=== PATIENT | female | born 1995 | race African-American/Black ===

== ENCOUNTER 2021-09-26 14:39 | Emergency (ER) | payer OTHER ==
[2021-09-26] MEDS ORDERED: Ondansetron 4 MG/2 ML SDV IVPUSH ONE (15:16)
[2021-09-26] MEDS ORDERED: Sodium Chloride 0.9% 1,000 ML IV ONE (15:16)
[2021-09-26 16:12] LABS: BLOOD UREA NITROGEN,BUN 5 mg/dL (7.0-18.0); CARBON DIOXIDE,CO2 25.4 mmol/L (21.0-32.0); CHLORIDE,CL 99 mmol/L (98-107); GLUCOSE RANDOM 81 mg/dL (74-106); POTASSIUM,K 3.6 mmol/L (3.5-5.1); SODIUM,NA 136 mmol/L (136-145)
[2021-09-26 16:38] LABS: CORONAVIRUS COVID-19 NAA NEGATIVE (NEGATIVE); INFLUENZA A NAA NEGATIVE (NEGATIVE); INFLUENZA B NAA NEGATIVE (NEGATIVE)
== END 2021-09-26 17:03 | disposition home or self-care (01) ==
LOC: MW.ED 14:39
DX: O21.9 Vomiting of pregnancy, unspecified (principal); O99.511 Diseases of the respiratory system complicating pregnancy, first trimester; J01.00 Acute maxillary sinusitis, unspecified; Z3A.11 11 weeks gestation of pregnancy; Z88.5 Allergy status to narcotic agent; Z20.822 Contact with and (suspected) exposure to COVID-19
CPT/HCPCS: 0240U; 36415; 80053; 81003; 85025; 96374; 99284; J2405; J7030

== ENCOUNTER 2022-04-07 09:49 | Inpatient (IN) | payer OTHER ==
[2022-04-07] MEDS: Lactated Ringers 1,000 ML IV SCH ×2 (11:00→12:00)
[2022-04-07] MEDS ORDERED: Citric Acid/Sodium Citrate Solution 30 ML Cup PO ONE (11:10)
[2022-04-07] MEDS ORDERED: Sodium Chloride 0.9% 20 ML SDV IV PRN (11:10)
[2022-04-07] MEDS ORDERED: ceFAZolin 2 GM in Premix Bag 1 BAG IV ONE (11:10)
[2022-04-07] MEDS ORDERED: Sodium Chloride 0.9% 2.5 ML Syringe FLUSH PRN ×2 (11:10→13:43)
[2022-04-07] MEDS ORDERED: Sodium Chloride 0.9% 10 ML Syringe FLUSH PRN ×2 (11:10→13:43)
[2022-04-07] MEDS ORDERED: Oxytocin/0.9 % Sodium Chloride 30 UNIT/500 ML BAG IV SCH (11:15)
[2022-04-07] MEDS ORDERED: Morphine PF 10 MG/10 ML SDV ONE (11:53)
[2022-04-07] MEDS ORDERED: Phenylephrine HCl In 0.9% NaCl 1 MG/10 ML Vial ONE (11:55)
[2022-04-07] MEDS ORDERED: Dexamethasone 4 MG/ML 5 ML MDV ONE (11:55)
[2022-04-07] MEDS ORDERED: Water For Injection, Sterile 40 ML ONE (11:55)
[2022-04-07] MEDS ORDERED: ceFAZolin 1 GM Vial ONE (11:55)
[2022-04-07] MEDS ORDERED: Oxytocin 10 Units/1 ML SDV ONE (11:55)
[2022-04-07] MEDS ORDERED: Dexmedetomidine 200 MCG/2 ML SDV ONE (11:55)
[2022-04-07] MEDS ORDERED: Ondansetron 4 MG/2 ML SDV ONE (11:55)
[2022-04-07] MEDS ORDERED: Ropivacaine 0.5% 5 MG/ML 30 ML SDV ONE (11:55)
[2022-04-07] MEDS ORDERED: ePHEDrine 50 MG/ML SDV ONE (12:40)
[2022-04-07] MEDS ORDERED: diphenhydrAMINE 50 MG/ML SDV IVPUSH PRN ×2 (13:43→14:21)
[2022-04-07] MEDS ORDERED: Misoprostol 200 MCG Tab RECTAL PRN (13:43)
[2022-04-07] MEDS ORDERED: Acetaminophen/oxyCODONE 325-5 MG Tab PO PRN ×2 (13:43)
[2022-04-07] MEDS ORDERED: Methylergonovine 0.2 MG/1 ML Amp IM PRN (13:43)
[2022-04-07] MEDS ORDERED: Tranexamic Acid 1,000 MG in Sodium Chloride 0.9% 100 ML IV PRN ×2 (13:43→16:44)
[2022-04-07] MEDS ORDERED: Bisacodyl 10 MG Supp RECTAL PRN (13:43)
[2022-04-07] MEDS ORDERED: Lanolin 100% Cream 7 GM Tube TOP PRN (13:43)
[2022-04-07] MEDS ORDERED: Ondansetron 4 MG/2 ML SDV IVPUSH PRN ×2 (13:43→14:21)
[2022-04-07] MEDS ORDERED: Lactated Ringers 1,000 ML IV SCH (13:45)
[2022-04-07] MEDS ORDERED: Naloxone 0.4 MG/ML SDV IVPUSH PRN (14:21)
[2022-04-07] MEDS ORDERED: Nalbuphine HCl 10 MG/ 1ML Amp IVPUSH PRN (14:21)
[2022-04-07] MEDS ORDERED: fentaNYL 100 MCG/2 ML SDV IVPUSH PRN (14:21)
[2022-04-07] MEDS ORDERED: Tranexamic Acid 1,000 MG in Sodium Chloride 0.9% 100 ML IV ONE (16:31)
[2022-04-07] MEDS ORDERED: Tranexamic Acid 1,000 MG/10 ML Vial ONE (16:40)
[2022-04-07] MEDS ORDERED: Carboprost Tromethamine 250 MCG/1 ML Amp IM ONE (18:04)
[2022-04-07] MEDS ORDERED: Carboprost Tromethamine 250 MCG/1 ML Amp ONE (18:11)
[2022-04-07 18:34] LABS: CARBON DIOXIDE,CO2 26.7 mmol/L (21.0-32.0); POTASSIUM,K 3.7 mmol/L (3.5-5.1)
[2022-04-07] MEDS ORDERED: Promethazine 25 MG/ML SDV IM ONE (19:03)
[2022-04-07] MEDS: Ketorolac 30 MG/ML SDV IVPUSH SCH (19:03)
[2022-04-07] MEDS: Loperamide 2 MG Cap PO PRN (19:45)
[2022-04-07] MEDS: Docusate Sodium 100 MG Cap PO SCH (21:00)
[2022-04-08] MEDS: Ketorolac 30 MG/ML SDV IVPUSH SCH ×3 (00:40→14:57)
[2022-04-08] MEDS: Loperamide 2 MG Cap PO PRN (02:11)
[2022-04-08] MEDS: Docusate Sodium 100 MG Cap PO SCH ×2 (12:19→21:28)
[2022-04-08] MEDS ORDERED: Ibuprofen 800 MG Tab PO PRN (13:43)
[2022-04-08] MEDS ORDERED: Ketorolac 30 MG/ML SDV IVPUSH SCH (21:15)
[2022-04-09] MEDS: Docusate Sodium 100 MG Cap PO SCH (09:44)
== END 2022-04-09 11:45 | disposition home or self-care (01) | DRG 787 ==
LOC: MW.OB 09:49
PROVIDERS: ADMIT Obstetrics & Gynecology; ATTEND Obstetrics & Gynecology
PROC: 10D00Z1 Extraction of Products of Conception, Low, Open Approach (ICD-10-PCS; principal; 2022-04-07)
DX: O34.211 Maternal care for low transverse scar from previous cesarean delivery (principal); O72.1 Other immediate postpartum hemorrhage; Z37.0 Single live birth; Z86.16 Personal history of COVID-19; Z20.822 Contact with and (suspected) exposure to COVID-19; E61.1 Iron deficiency; O99.284 Endocrine, nutritional and metabolic diseases complicating childbirth; Z3A.38 38 weeks gestation of pregnancy
CPT/HCPCS: 01961; 36415; 59025; 64488; 80053; 85014; 85018; 85027; 85384; 85610; 85730; 86592; 86850; 86900; 86901; 86920; A9270-GY; J0690; J1100; J1200; J1885; J2274; J2405; J2550; J2590; J2795; J7120; U0002

== ENCOUNTER 2022-07-13 13:20 | Emergency (ER) | payer OTHER ==
[2022-07-13] MEDS ORDERED: Lactated Ringers 1,000 ML IV ONE (13:55)
[2022-07-13 14:20] LABS: CARBON DIOXIDE,CO2 26.4 mmol/L (21.0-32.0)
== END 2022-07-13 15:02 | disposition home or self-care (01) ==
LOC: MW.ED 13:20
DX: N93.9 Abnormal uterine and vaginal bleeding, unspecified (principal); E66.9 Obesity, unspecified; Z68.33 Body mass index [BMI] 33.0-33.9, adult; Z88.5 Allergy status to narcotic agent; Z86.16 Personal history of COVID-19
CPT/HCPCS: 36415; 80053; 81025; 85025; 96360; 99284; J7120

== ENCOUNTER 2022-09-03 15:11 | Emergency (ER) | payer OTHER ==
[2022-09-03] MEDS ORDERED: Ondansetron 4 MG Tab.DIS PO ONE (15:33)
[2022-09-03] MEDS ORDERED: Ketorolac 60 MG/2 ML SDV IM ONE (15:34)
== END 2022-09-03 16:31 | disposition home or self-care (01) ==
LOC: MW.ED 15:11
DX: S00.81XA Abrasion of other part of head, initial encounter (principal); E66.9 Obesity, unspecified; Z68.35 Body mass index [BMI] 35.0-35.9, adult; Z88.5 Allergy status to narcotic agent; Z86.16 Personal history of COVID-19; W22.09XA Striking against other stationary object, initial encounter
CPT/HCPCS: 70450; 70450-26; 96372; 99284; A9270-GY; J1885

== ENCOUNTER 2022-11-12 16:06 | Emergency (ER) | payer OTHER, MEDICAID ==
[2022-11-12] MEDS ORDERED: Sodium Chloride 0.9% 1,000 ML IV ONE ×2 (16:33→18:00)
[2022-11-12] MEDS ORDERED: Ketorolac 30 MG/ML SDV IVPUSH ONE (16:33)
[2022-11-12] MEDS ORDERED: Ondansetron 4 MG/2 ML SDV IVPUSH ONE (16:33)
[2022-11-12 16:51] LABS: BASOPHILS PERCENT AUTO 0.2 % (0.0-1.5); EOSINOPHILS ABSOLUTE AUTO 0.3 K/uL (0.0-0.7); EOSINOPHILS PERCENT AUTO 4.3 % (0.0-7.0); HEMATOCRIT 40.7 % (36.0-46.0); HEMOGLOBIN 13.3 g/dL (12.0-16.0); LYMPHOCYTES ABSOLUTE AUTO 2.9 K/uL (0.6-2.4); LYMPHOCYTES PERCENT AUTO 48.5 % (16.0-40.0); MEAN CORPUSCULAR HGB CONC 32.7 g/dL (31.0-37.0); MEAN CORPUSCULAR VOLUME 76.4 fL (80.0-98.0); MONOCYTES ABSOLUTE AUTO 0.3 K/uL (0.0-0.8); NEUTROPHILS ABSOLUTE AUTO 2.5 K/uL (1.4-5.7); NRBC ABSOLUTE 0 K/uL; PLATELET COUNT,PLT 367 K/uL (150-400); RED BLOOD CELL COUNT 5.33 M/uL (4.30-5.90); WHITE BLOOD CELL COUNT,WBC 6.02 K/uL (4.0-11.0)
[2022-11-12 17:14] LABS: ALBUMIN 4.1 g/dL (3.4-5.0); BILIRUBIN TOTAL 0.8 mg/dL (0.2-1.0); CALCIUM 8.9 mg/dL (8.5-10.1); CARBON DIOXIDE,CO2 28.2 mmol/L (21.0-32.0); CREATININE 0.8 mg/dL (0.6-1.0); EST CRCL DRUG DOSING (CG) 87.38 mL/min; PROTEIN TOTAL,TP 8.2 g/dL (6.4-8.2)
== END 2022-11-12 18:23 | disposition home or self-care (01) ==
LOC: MW.ED 16:06
DX: A08.4 Viral intestinal infection, unspecified (principal); E66.9 Obesity, unspecified; Z68.35 Body mass index [BMI] 35.0-35.9, adult; Z88.5 Allergy status to narcotic agent; Z86.16 Personal history of COVID-19; Z98.890 Other specified postprocedural states
CPT/HCPCS: 36415; 80053; 83690; 85025; 96361; 96374; 96375; 99284; J1885; J2405; J7030

== ENCOUNTER 2023-02-01 11:35 | Emergency (ER) | payer OTHER, MEDICAID | END 2023-02-01 15:26 | disposition left against medical advice (07) | LOC: MW.ED 11:35 | DX: Z53.21 Procedure and treatment not carried out due to patient leaving prior to being seen by health care provider (principal) | CPT/HCPCS: 73610-26-LT; 73610-LT; 99282 ==

== ENCOUNTER 2023-09-16 19:17 | Emergency (ER) | payer OTHER ==
[2023-09-16] MEDS ORDERED: diphenhydrAMINE 50 MG/ML SDV ONE (19:46)
[2023-09-16 19:47] LABS: BASOPHILS ABSOLUTE AUTO 0.03 K/uL (0.00-0.20); BASOPHILS PERCENT AUTO 0.7 % (0.0-1.0); EOSINOPHILS ABSOLUTE AUTO 0.48 K/uL (0.00-0.45); EOSINOPHILS PERCENT AUTO 11.5 % (0.0-6.0); HEMATOCRIT 36.1 % (37.0-47.0); HEMOGLOBIN 11.9 g/dL (12.0-16.0); LYMPHOCYTES ABSOLUTE AUTO 1.87 K/uL (1.00-4.80); LYMPHOCYTES PERCENT AUTO 44.7 % (24.0-44.0); MEAN CORPUSCULAR HEMOGLOBIN 25.7 pg (28.0-32.0); MEAN PLATELET VOLUME 9.2 fL (9.4-12.3); MONOCYTES ABSOLUTE AUTO 0.21 K/uL (0.00-0.80); NEUTROPHILS ABSOLUTE AUTO 1.59 K/uL (1.80-7.70); NEUTROPHILS PERCENT AUTO 38.1 % (41.0-71.0); PLATELET COUNT,PLT 325 K/uL (150-400); RED BLOOD CELL COUNT 4.63 M/uL (4.10-5.30); WHITE BLOOD CELL COUNT,WBC 4.18 K/uL (3.9-11.3)
[2023-09-16] MEDS ORDERED: Ketorolac 30 MG/ML SDV ONE (19:47)
[2023-09-16] MEDS: Metoclopramide 10 MG/2 ML SDV IVPUSH ONE (19:47)
[2023-09-16] MEDS ORDERED: Metoclopramide 10 MG/2 ML SDV ONE (19:47)
[2023-09-16] MEDS: Ketorolac 30 MG/ML SDV IVPUSH ONE (19:48)
[2023-09-16] MEDS: diphenhydrAMINE 50 MG/ML SDV IVPUSH ONE (19:48)
[2023-09-16] MEDS: Sodium Chloride 0.9% 1,000 ML IV ONE (19:49)
[2023-09-16 21:27] LABS: CORONAVIRUS COVID-19 NAA NEGATIVE (NEGATIVE); INFLUENZA A NAA NEGATIVE (NEGATIVE); INFLUENZA B NAA NEGATIVE (NEGATIVE)
[2023-09-16 21:29] LABS: ALBUMIN 3.7 g/dL (3.4-5.0); BILIRUBIN TOTAL 0.4 mg/dL (0.2-1.0); CALCIUM 8.7 mg/dL (8.5-10.1); CARBON DIOXIDE,CO2 24.2 mmol/L (21.0-32.0); CREATININE 1.1 mg/dL (0.6-1.0); EST CRCL DRUG DOSING (CG) 62.99 mL/min; MAGNESIUM 1.7 mg/dL (1.8-2.4); POTASSIUM,K 3.5 mmol/L (3.5-5.1); PROTEIN TOTAL,TP 7.4 g/dL (6.4-8.2); TSH ULTRASENSITIVE 0.89 uIU/mL (0.36-3.74)
== END 2023-09-16 21:45 | disposition home or self-care (01) ==
LOC: MW.ED 19:17
DX: I10 Essential (primary) hypertension (principal); R60.9 Edema, unspecified; E66.9 Obesity, unspecified; Z88.6 Allergy status to analgesic agent; Z79.899 Other long term (current) drug therapy; Z75.8 Other problems related to medical facilities and other health care; Z68.33 Body mass index [BMI] 33.0-33.9, adult
CPT/HCPCS: 0240U; 36415; 70450; 71045; 80053; 83735; 84443; 84484; 84703; 85025; 93005; 96374; 96375; 99285; J1200; J1885; J2765; J7030; 93010; 99284

== ENCOUNTER 2024-02-02 01:55 | Emergency (ER) | payer MEDICAID, OTHER ==
[2024-02-02] MEDS ORDERED: Ketorolac 30 MG/ML SDV IM ONE (03:15)
[2024-02-02 03:32] LABS: BASOPHILS ABSOLUTE AUTO 0.04 K/uL (0.00-0.20); BASOPHILS PERCENT AUTO 0.7 % (0.0-1.0); EOSINOPHILS ABSOLUTE AUTO 0.22 K/uL (0.00-0.45); EOSINOPHILS PERCENT AUTO 3.7 % (0.0-6.0); HEMATOCRIT 37.2 % (37.0-47.0); LYMPHOCYTES ABSOLUTE AUTO 2.55 K/uL (1.00-4.80); LYMPHOCYTES PERCENT AUTO 42.5 % (24.0-44.0); MEAN CORPUSCULAR HGB CONC 32.3 g/dL (32.0-36.0); MEAN CORPUSCULAR VOLUME 77.5 fL (83.0-99.0); MEAN PLATELET VOLUME 9.4 fL (9.4-12.3); MONOCYTES ABSOLUTE AUTO 0.29 K/uL (0.00-0.80); MONOCYTES PERCENT AUTO 4.8 % (0.0-8.0); NEUTROPHILS PERCENT AUTO 48.3 % (41.0-71.0); PLATELET COUNT,PLT 291 K/uL (150-400)
[2024-02-02 03:57] LABS: ALBUMIN 3.8 g/dL (3.4-5.0); BILIRUBIN TOTAL 0.3 mg/dL (0.2-1.0); CARBON DIOXIDE,CO2 29.9 mmol/L (21.0-32.0); EST CRCL DRUG DOSING (CG) 68.67 mL/min; POTASSIUM,K 3.4 mmol/L (3.5-5.1); PROTEIN TOTAL,TP 7.5 g/dL (6.4-8.2)
== END 2024-02-02 04:30 | disposition left against medical advice (07) ==
LOC: MW.ED 01:55
DX: R51.9 Headache, unspecified (principal); I10 Essential (primary) hypertension; E66.9 Obesity, unspecified; Z79.899 Other long term (current) drug therapy; Z88.5 Allergy status to narcotic agent; Z75.8 Other problems related to medical facilities and other health care; Z68.37 Body mass index [BMI] 37.0-37.9, adult
CPT/HCPCS: 36415; 80053; 85025; 99283; 99284

== ENCOUNTER 2024-05-03 01:06 | Emergency (ER) | payer OTHER ==
[2024-05-03] MEDS: Sodium Chloride 0.9% 1,000 ML IV ONE (01:47)
[2024-05-03] MEDS: Pantoprazole 40 MG in Sodium Chloride 0.9% 10 ML IVPUSH ONE (01:48)
[2024-05-03] MEDS: Ondansetron 4 MG/2 ML SDV IVPUSH ONE (01:48)
[2024-05-03 01:49] LABS: BASOPHILS ABSOLUTE AUTO 0.02 K/uL (0.00-0.20); BASOPHILS PERCENT AUTO 0.2 % (0.0-1.0); EOSINOPHILS PERCENT AUTO 1.1 % (0.0-6.0); HEMATOCRIT 39.5 % (37.0-47.0); HEMOGLOBIN 13.3 g/dL (12.0-16.0); IMMATURE GRAN ABSOLUTE AUTO 0.01 K/uL (0.00-0.05); IMMATURE GRAN PERCENT AUTO 0.1 % (0.0-0.4); LYMPHOCYTES ABSOLUTE AUTO 2.72 K/uL (1.00-4.80); LYMPHOCYTES PERCENT AUTO 29.9 % (24.0-44.0); MEAN CORPUSCULAR HEMOGLOBIN 25.6 pg (28.0-32.0); MEAN CORPUSCULAR HGB CONC 33.7 g/dL (32.0-36.0); MEAN CORPUSCULAR VOLUME 76.1 fL (83.0-99.0); MEAN PLATELET VOLUME 9.3 fL (9.4-12.3); MONOCYTES ABSOLUTE AUTO 0.42 K/uL (0.00-0.80); MONOCYTES PERCENT AUTO 4.6 % (0.0-8.0); NEUTROPHILS ABSOLUTE AUTO 5.83 K/uL (1.80-7.70); NEUTROPHILS PERCENT AUTO 64.1 % (41.0-71.0); PLATELET COUNT,PLT 318 K/uL (150-400); RED BLOOD CELL COUNT 5.19 M/uL (4.10-5.30)
[2024-05-03] MEDS: Morphine 2 MG/ML SYRINGE IVPUSH ONE (01:51)
[2024-05-03] MEDS: Sodium Chloride 0.9% 10 ML Syringe FLUSH PRN (01:52)
[2024-05-03 01:57] LABS: APPEARANCE,URINE SLT CLOUDY; BILIRUBIN,URINE NEGATIVE (NEGATIVE); COLOR,URINE YELLOW; GLUCOSE,URINE NEGATIVE (NEGATIVE); KETONES,URINE NEGATIVE (NEGATIVE); LEUKOCYTE ESTERASE,URINE NEGATIVE (NEGATIVE); NITRITE,URINE NEGATIVE (NEGATIVE); OCCULT BLOOD,URINE TRACE-INTACT (NEGATIVE); PROTEIN,URINE NEGATIVE (NEGATIVE); UROBILINOGEN,URINE 0.2 EU/dL (<2.0)
[2024-05-03 02:09] LABS: BACTERIA,URINE RARE (NEGATIVE); EPITHELIAL CELLS,URINE MODERATE (NONE-FEW)
[2024-05-03 02:14] LABS: A/G RATIO 1.1 (0.9-1.6); ALBUMIN 4.3 g/dL (3.4-5.0); BILIRUBIN TOTAL 0.8 mg/dL (0.2-1.0); CALCIUM 9.3 mg/dL (8.5-10.1); CARBON DIOXIDE,CO2 28.1 mmol/L (21.0-32.0); EST CRCL DRUG DOSING (CG) 68.67 mL/min; POTASSIUM,K 3.7 mmol/L (3.5-5.1); PROTEIN TOTAL,TP 8.2 g/dL (6.4-8.2)
[2024-05-03] MEDS: Ketorolac 30 MG/ML SDV IVPUSH ONE (03:00)
== END 2024-05-03 03:05 | disposition home or self-care (01) ==
LOC: MW.ED 01:06
DX: N83.209 Unspecified ovarian cyst, unspecified side (principal); A08.4 Viral intestinal infection, unspecified; R11.2 Nausea with vomiting, unspecified; E66.9 Obesity, unspecified; Z88.5 Allergy status to narcotic agent; Z79.899 Other long term (current) drug therapy; Z68.35 Body mass index [BMI] 35.0-35.9, adult
CPT/HCPCS: 36415; 80053; 81001; 83605; 83690; 84703; 85025; 96361; 96374; 96375; 99283; J1885; J2270; J2405; J2470; J3490; J7030

== ENCOUNTER 2024-06-22 02:33 | Emergency (ER) | payer OTHER ==
[2024-06-22 03:14] LABS: BASOPHILS ABSOLUTE AUTO 0.02 K/uL (0.00-0.20); BASOPHILS PERCENT AUTO 0.3 % (0.0-1.0); EOSINOPHILS ABSOLUTE AUTO 0.47 K/uL (0.00-0.45); EOSINOPHILS PERCENT AUTO 8.2 % (0.0-6.0); HEMOGLOBIN 11.8 g/dL (12.0-16.0); IMMATURE GRAN ABSOLUTE AUTO 0.01 K/uL (0.00-0.05); IMMATURE GRAN PERCENT AUTO 0.2 % (0.0-0.4); LYMPHOCYTES ABSOLUTE AUTO 1.64 K/uL (1.00-4.80); LYMPHOCYTES PERCENT AUTO 28.6 % (24.0-44.0); MEAN CORPUSCULAR HGB CONC 32.8 g/dL (32.0-36.0); MEAN CORPUSCULAR VOLUME 76.3 fL (83.0-99.0); MEAN PLATELET VOLUME 9.4 fL (9.4-12.3); MONOCYTES ABSOLUTE AUTO 0.32 K/uL (0.00-0.80); MONOCYTES PERCENT AUTO 5.6 % (0.0-8.0); NEUTROPHILS ABSOLUTE AUTO 3.27 K/uL (1.80-7.70); NEUTROPHILS PERCENT AUTO 57.1 % (41.0-71.0); PLATELET COUNT,PLT 269 K/uL (150-400); RED BLOOD CELL COUNT 4.72 M/uL (4.10-5.30); WHITE BLOOD CELL COUNT,WBC 5.73 K/uL (3.9-11.3)
[2024-06-22] MEDS: Ibuprofen 600 MG Tab PO ONE (03:28)
[2024-06-22] MEDS: predniSONE 20 MG Tab PO ONE (03:28)
[2024-06-22 03:37] LABS: BLOOD UREA NITROGEN,BUN 6 mg/dL (7.0-18.0); CALCIUM 8.9 mg/dL (8.5-10.1); CARBON DIOXIDE,CO2 26.2 mmol/L (21.0-32.0); CHLORIDE,CL 103 mmol/L (98-107); EST CRCL DRUG DOSING (CG) 68.67 mL/min; GLUCOSE RANDOM 94 mg/dL (74-106); POTASSIUM,K 3.3 mmol/L (3.5-5.1); SODIUM,NA 139 mmol/L (136-145)
[2024-06-22 03:38] LABS: ESTIMATED GFR 78 mL/min (>60)
== END 2024-06-22 04:16 | disposition home or self-care (01) ==
LOC: MW.ED 02:33
DX: R07.89 Other chest pain (principal); J06.9 Acute upper respiratory infection, unspecified; I10 Essential (primary) hypertension; E66.9 Obesity, unspecified; Z68.34 Body mass index [BMI] 34.0-34.9, adult; Z88.5 Allergy status to narcotic agent; Z79.899 Other long term (current) drug therapy; Z75.8 Other problems related to medical facilities and other health care
CPT/HCPCS: 36415; 71045; 80048; 84484; 85025; 87428; 93005; 99285; A9270; 93010; 99284

== ENCOUNTER 2024-07-21 02:19 | Emergency (ER) | payer OTHER ==
[2024-07-21] MEDS: Acetaminophen 500 MG Tab PO ONE (02:50)
[2024-07-21] MEDS: Sodium Chloride 0.9% 1,000 ML IV ONE (03:25)
[2024-07-21] MEDS: Ondansetron 4 MG/2 ML SDV IVPUSH ONE (03:25)
[2024-07-21 03:34] LABS: APPEARANCE,URINE CLEAR; COLOR,URINE YELLOW
[2024-07-21 03:35] LABS: BILIRUBIN,URINE NEGATIVE (NEGATIVE); GLUCOSE,URINE NEGATIVE (NEGATIVE); KETONES,URINE 15 mg/dL (NEGATIVE); LEUKOCYTE ESTERASE,URINE NEGATIVE (NEGATIVE); NITRITE,URINE NEGATIVE (NEGATIVE); OCCULT BLOOD,URINE NEGATIVE (NEGATIVE); PH,URINE 6.5 (5.0-8.0); PROTEIN,URINE TRACE mg/dL (NEGATIVE); UROBILINOGEN,URINE 0.2 EU/dL (<2.0)
[2024-07-21 03:36] LABS: BACTERIA,URINE NOT SEEN (NEGATIVE); EPITHELIAL CELLS,URINE FEW (NONE-FEW); RBC,URINE 0-1 (0-2/HPF); WBC,URINE 0-3 (0-5/HPF)
[2024-07-21 04:14] LABS: BASOPHILS ABSOLUTE AUTO 0.02 K/uL (0.00-0.20); BASOPHILS PERCENT AUTO 0.6 % (0.0-1.0); EOSINOPHILS ABSOLUTE AUTO 0.04 K/uL (0.00-0.45); EOSINOPHILS PERCENT AUTO 1.1 % (0.0-6.0); HEMATOCRIT 37.2 % (37.0-47.0); HEMOGLOBIN 12.6 g/dL (12.0-16.0); IMMATURE GRAN ABSOLUTE AUTO 0.01 K/uL (0.00-0.05); IMMATURE GRAN PERCENT AUTO 0.3 % (0.0-0.4); LYMPHOCYTES ABSOLUTE AUTO 1.15 K/uL (1.00-4.80); LYMPHOCYTES PERCENT AUTO 32.5 % (24.0-44.0); MEAN CORPUSCULAR HGB CONC 33.9 g/dL (32.0-36.0); MEAN CORPUSCULAR VOLUME 73.8 fL (83.0-99.0); MONOCYTES ABSOLUTE AUTO 0.29 K/uL (0.00-0.80); MONOCYTES PERCENT AUTO 8.2 % (0.0-8.0); NEUTROPHILS ABSOLUTE AUTO 2.03 K/uL (1.80-7.70); NEUTROPHILS PERCENT AUTO 57.3 % (41.0-71.0); PLATELET COUNT,PLT 255 K/uL (150-400); RED BLOOD CELL COUNT 5.04 M/uL (4.10-5.30); WHITE BLOOD CELL COUNT,WBC 3.54 K/uL (3.9-11.3)
[2024-07-21 04:35] LABS: ALBUMIN 3.9 g/dL (3.4-5.0); BILIRUBIN TOTAL 0.7 mg/dL (0.2-1.0); CALCIUM 8.7 mg/dL (8.5-10.1); CARBON DIOXIDE,CO2 22.5 mmol/L (21.0-32.0); EST CRCL DRUG DOSING (CG) 68.67 mL/min; POTASSIUM,K 3.6 mmol/L (3.5-5.1); PROTEIN TOTAL,TP 7.7 g/dL (6.4-8.2)
== END 2024-07-21 05:00 | disposition home or self-care (01) ==
LOC: MW.ED 02:19
DX: B34.9 Viral infection, unspecified (principal); I10 Essential (primary) hypertension; E66.9 Obesity, unspecified; Z79.899 Other long term (current) drug therapy; Z88.5 Allergy status to narcotic agent; Z68.32 Body mass index [BMI] 32.0-32.9, adult
CPT/HCPCS: 36415; 80053; 81001; 83690; 84703; 85025; 87428; 96361; 96374; 99284; A9270; J2405; J7030

== ENCOUNTER 2024-07-24 13:24 | Emergency (ER) | payer OTHER ==
[2024-07-24 13:53] LABS: BASOPHILS ABSOLUTE AUTO 0.02 K/uL (0.00-0.20); BASOPHILS PERCENT AUTO 0.5 % (0.0-1.0); EOSINOPHILS ABSOLUTE AUTO 0.01 K/uL (0.00-0.45); EOSINOPHILS PERCENT AUTO 0.3 % (0.0-6.0); HEMATOCRIT 36.8 % (37.0-47.0); HEMOGLOBIN 12.5 g/dL (12.0-16.0); LYMPHOCYTES ABSOLUTE AUTO 0.89 K/uL (1.00-4.80); LYMPHOCYTES PERCENT AUTO 24.3 % (24.0-44.0); MEAN CORPUSCULAR HEMOGLOBIN 24.9 pg (28.0-32.0); MEAN CORPUSCULAR VOLUME 73.2 fL (83.0-99.0); MEAN PLATELET VOLUME 9.3 fL (9.4-12.3); MONOCYTES ABSOLUTE AUTO 0.18 K/uL (0.00-0.80); MONOCYTES PERCENT AUTO 4.9 % (0.0-8.0); NEUTROPHILS ABSOLUTE AUTO 2.56 K/uL (1.80-7.70); PLATELET COUNT,PLT 252 K/uL (150-400); RED BLOOD CELL COUNT 5.03 M/uL (4.10-5.30); WHITE BLOOD CELL COUNT,WBC 3.66 K/uL (3.9-11.3)
[2024-07-24 14:21] LABS: A/G RATIO 0.8 (0.9-1.6); ALBUMIN 3.7 g/dL (3.4-5.0); BILIRUBIN TOTAL 0.6 mg/dL (0.2-1.0); CARBON DIOXIDE,CO2 25.3 mmol/L (21.0-32.0); EST CRCL DRUG DOSING (CG) 68.67 mL/min; POTASSIUM,K 3.6 mmol/L (3.5-5.1); PROTEIN TOTAL,TP 8.2 g/dL (6.4-8.2)
== END 2024-07-24 16:54 | disposition left against medical advice (07) ==
LOC: MW.ED 13:24
DX: Z53.21 Procedure and treatment not carried out due to patient leaving prior to being seen by health care provider (principal)
CPT/HCPCS: 36415; 80053; 85025; 87428-QW

== ENCOUNTER 2024-07-25 22:54 | Emergency (ER) | payer OTHER ==
[2024-07-26] MEDS: Ketorolac 30 MG/ML SDV IVPUSH ONE (01:25)
[2024-07-26] MEDS: Sodium Chloride 0.9% 2.5 ML Syringe FLUSH PRN (01:27)
[2024-07-26] MEDS: Sodium Chloride 0.9% 1,000 ML IV ONE (01:27)
[2024-07-26] MEDS: Sodium Chloride 0.9% 10 ML Syringe FLUSH PRN (01:27)
[2024-07-26] MEDS: cefTRIAXone 2 GM in Sodium Chloride 0.9% 50 ML IV ONE (01:27)
[2024-07-26 01:42] LABS: BASOPHILS ABSOLUTE AUTO 0.02 K/uL (0.00-0.20); BASOPHILS PERCENT AUTO 0.6 % (0.0-1.0); HEMATOCRIT 37.2 % (37.0-47.0); HEMOGLOBIN 12.7 g/dL (12.0-16.0); IMMATURE GRAN ABSOLUTE AUTO 0.01 K/uL (0.00-0.05); IMMATURE GRAN PERCENT AUTO 0.3 % (0.0-0.4); LYMPHOCYTES PERCENT AUTO 37.5 % (24.0-44.0); MEAN CORPUSCULAR HEMOGLOBIN 24.8 pg (28.0-32.0); MEAN CORPUSCULAR HGB CONC 34.1 g/dL (32.0-36.0); MEAN CORPUSCULAR VOLUME 72.7 fL (83.0-99.0); MEAN PLATELET VOLUME 9.7 fL (9.4-12.3); MONOCYTES ABSOLUTE AUTO 0.23 K/uL (0.00-0.80); MONOCYTES PERCENT AUTO 7.2 % (0.0-8.0); NEUTROPHILS ABSOLUTE AUTO 1.74 K/uL (1.80-7.70); NEUTROPHILS PERCENT AUTO 54.4 % (41.0-71.0); PLATELET COUNT,PLT 270 K/uL (150-400); RED BLOOD CELL COUNT 5.12 M/uL (4.10-5.30)
[2024-07-26 02:09] LABS: A/G RATIO 0.8 (0.9-1.6); ALBUMIN 3.7 g/dL (3.4-5.0); BILIRUBIN TOTAL 0.6 mg/dL (0.2-1.0); CALCIUM 8.8 mg/dL (8.5-10.1); CARBON DIOXIDE,CO2 25.1 mmol/L (21.0-32.0); EST CRCL DRUG DOSING (CG) 68.67 mL/min; POTASSIUM,K 3.3 mmol/L (3.5-5.1); PROTEIN TOTAL,TP 8.1 g/dL (6.4-8.2)
[2024-07-26 02:37] LABS: LACTIC ACID 0.9 mmol/L (0.4-2.0)
[2024-07-26 03:03] LABS: APPEARANCE,URINE CLEAR; BILIRUBIN,URINE NEGATIVE (NEGATIVE); COLOR,URINE YELLOW; GLUCOSE,URINE NEGATIVE (NEGATIVE); KETONES,URINE 40 mg/dL (NEGATIVE); LEUKOCYTE ESTERASE,URINE NEGATIVE (NEGATIVE); NITRITE,URINE NEGATIVE (NEGATIVE); OCCULT BLOOD,URINE MODERATE (NEGATIVE); PROTEIN,URINE NEGATIVE (NEGATIVE)
[2024-07-26] MEDS: Potassium Chloride 20 MEQ Tab.ER PO ONE (03:03)
[2024-07-26 03:14] LABS: BACTERIA,URINE RARE (NEGATIVE); EPITHELIAL CELLS,URINE RARE (NONE-FEW); WBC,URINE 0-2 (0-5/HPF)
== END 2024-07-26 03:35 | disposition home or self-care (01) ==
LOC: MW.ED 22:54
DX: H66.001 Acute suppurative otitis media without spontaneous rupture of ear drum, right ear (principal); I10 Essential (primary) hypertension; Z88.5 Allergy status to narcotic agent; Z79.899 Other long term (current) drug therapy
CPT/HCPCS: 36415; 71046; 71046-26; 80053; 81001; 83605; 85025; 87040; 87651-QW; 96365; 96375; 99285-25; A9270-GY; J0696; J1885; J3490; J7030

== ENCOUNTER 2024-07-29 21:13 | Emergency (ER) | payer OTHER ==
[2024-07-29] MEDS ORDERED: Sodium Chloride 0.9% 10 ML Syringe FLUSH PRN (22:11)
[2024-07-29] MEDS ORDERED: Sodium Chloride 0.9% 2.5 ML Syringe FLUSH PRN (22:11)
[2024-07-29] MEDS: Sodium Chloride 0.9% 1,000 ML IV ONE (22:52)
[2024-07-29] MEDS: Ketorolac 30 MG/ML SDV IVPUSH ONE (22:52)
[2024-07-29] MEDS: cefTRIAXone 1 GM in Sodium Chloride 0.9% 50 ML IV ONE (22:52)
[2024-07-29] MEDS: Iopamidol 755 MG/ML 500 ML Multipack Bottle IVPUSH ONE (23:05)
[2024-07-29 23:43] LABS: A/G RATIO 0.8 (0.9-1.6); ALBUMIN 3.6 g/dL (3.4-5.0); BILIRUBIN TOTAL 0.4 mg/dL (0.2-1.0); CALCIUM 8.9 mg/dL (8.5-10.1); CARBON DIOXIDE,CO2 28.9 mmol/L (21.0-32.0); CREATININE 0.9 mg/dL (0.6-1.0); EST CRCL DRUG DOSING (CG) 76.3 mL/min; POTASSIUM,K 3.6 mmol/L (3.5-5.1); PROTEIN TOTAL,TP 7.9 g/dL (6.4-8.2); TSH ULTRASENSITIVE 0.38 uIU/mL (0.36-3.74)
[2024-07-29 23:56] LABS: BASOPHILS ABSOLUTE AUTO 0.01 K/uL (0.00-0.20); BASOPHILS PERCENT AUTO 0.3 % (0.0-1.0); EOSINOPHILS ABSOLUTE AUTO 0.02 K/uL (0.00-0.45); EOSINOPHILS PERCENT AUTO 0.7 % (0.0-6.0); HEMATOCRIT 33.9 % (37.0-47.0); HEMOGLOBIN 11.4 g/dL (12.0-16.0); IMMATURE GRAN ABSOLUTE AUTO 0.01 K/uL (0.00-0.05); IMMATURE GRAN PERCENT AUTO 0.3 % (0.0-0.4); LYMPHOCYTES ABSOLUTE AUTO 1.12 K/uL (1.00-4.80); LYMPHOCYTES PERCENT AUTO 38.5 % (24.0-44.0); MEAN CORPUSCULAR HEMOGLOBIN 24.7 pg (28.0-32.0); MEAN CORPUSCULAR HGB CONC 33.6 g/dL (32.0-36.0); MEAN CORPUSCULAR VOLUME 73.5 fL (83.0-99.0); MEAN PLATELET VOLUME 9.8 fL (9.4-12.3); MONOCYTES ABSOLUTE AUTO 0.22 K/uL (0.00-0.80); MONOCYTES PERCENT AUTO 7.6 % (0.0-8.0); NEUTROPHILS ABSOLUTE AUTO 1.53 K/uL (1.80-7.70); NEUTROPHILS PERCENT AUTO 52.6 % (41.0-71.0); PLATELET COUNT,PLT 276 K/uL (150-400); RED BLOOD CELL COUNT 4.61 M/uL (4.10-5.30); WHITE BLOOD CELL COUNT,WBC 2.91 K/uL (3.9-11.3)
[2024-07-30 00:37] LABS: LACTIC ACID 1.5 mmol/L (0.4-2.0)
[2024-07-30 00:51] LABS: APPEARANCE,URINE CLEAR; BILIRUBIN,URINE NEGATIVE (NEGATIVE); COLOR,URINE YELLOW; GLUCOSE,URINE NEGATIVE (NEGATIVE); KETONES,URINE 15 mg/dL (NEGATIVE); LEUKOCYTE ESTERASE,URINE NEGATIVE (NEGATIVE); NITRITE,URINE NEGATIVE (NEGATIVE); OCCULT BLOOD,URINE NEGATIVE (NEGATIVE); PROTEIN,URINE NEGATIVE (NEGATIVE); UROBILINOGEN,URINE 0.2 EU/dL (<2.0)
[2024-07-30] MEDS: Acetaminophen 500 MG Tab PO ONE (01:04)
== END 2024-07-30 03:52 | disposition home or self-care (01) ==
LOC: MW.ED 21:13
DX: R50.9 Fever, unspecified (principal); I10 Essential (primary) hypertension; Z88.5 Allergy status to narcotic agent; Z79.899 Other long term (current) drug therapy
CPT/HCPCS: 36415; 70450; 71260; 72132; 74177; 80053; 81003; 83605; 84443; 84703; 85025; 86308; 87040; 87389; 87428; 93005; 96361; 96365; 96375; 99284; A9270; J0696; J1885; J3490; J7030; Q9967; 93010; 99283

== ENCOUNTER 2024-11-01 08:01 | Emergency (ER) | payer OTHER | END 2024-11-01 09:30 | disposition home or self-care (01) | LOC: MW.ED 08:01 | DX: J02.9 Acute pharyngitis, unspecified (principal); E66.9 Obesity, unspecified; I10 Essential (primary) hypertension; Z88.8 Allergy status to other drugs, medicaments and biological substances; Z68.32 Body mass index [BMI] 32.0-32.9, adult | CPT/HCPCS: 87426-QW; 87651; 99282; 99283 ==

== ENCOUNTER 2025-01-20 03:54 | Emergency (ER) | payer OTHER ==
[2025-01-20 04:20] LABS: BASOPHILS ABSOLUTE AUTO 0.03 K/uL (0.00-0.20); BASOPHILS PERCENT AUTO 0.5 % (0.0-1.0); EOSINOPHILS ABSOLUTE AUTO 0.13 K/uL (0.00-0.45); EOSINOPHILS PERCENT AUTO 2.3 % (0.0-6.0); IMMATURE GRAN ABSOLUTE AUTO 0.01 K/uL (0.00-0.05); IMMATURE GRAN PERCENT AUTO 0.2 % (0.0-0.4); LYMPHOCYTES ABSOLUTE AUTO 2.92 K/uL (1.00-4.80); LYMPHOCYTES PERCENT AUTO 51.5 % (24.0-44.0); MEAN PLATELET VOLUME 9.5 fL (9.4-12.3); MONOCYTES ABSOLUTE AUTO 0.44 K/uL (0.00-0.80); MONOCYTES PERCENT AUTO 7.8 % (0.0-8.0); NEUTROPHILS ABSOLUTE AUTO 2.14 K/uL (1.80-7.70); NEUTROPHILS PERCENT AUTO 37.7 % (41.0-71.0); NRBC ABSOLUTE 0.00 K/uL (0.00-0.02); NRBC PERCENT 0.0 /100WBC (0.0-0.2); PLATELET COUNT,PLT 326 K/uL (150-400); RED BLOOD CELL COUNT 4.71 M/uL (4.10-5.30); WHITE BLOOD CELL COUNT,WBC 5.67 K/uL (3.9-11.3)
[2025-01-20 04:21] LABS: APPEARANCE,URINE CLEAR; GLUCOSE,URINE NEGATIVE (NEGATIVE); OCCULT BLOOD,URINE NEGATIVE (NEGATIVE)
[2025-01-20] MEDS: Ondansetron 4 MG/2 ML SDV IVPUSH ONE (04:25)
[2025-01-20] MEDS: Ketorolac 30 MG/ML SDV IVPUSH ONE (04:26)
[2025-01-20 04:45] LABS: A/G RATIO 1.1 (0.9-1.6); ALANINE AMINOTRANSFERASE,ALT 23.0 IU/L (14-63); ASPARTATE AMNIOTRANSFERASE,AST 18.0 IU/L (15-37); BILIRUBIN TOTAL 0.5 mg/dL (0.2-1.0); BLOOD UREA NITROGEN,BUN 7.0 mg/dL (7.0-18.0); CARBON DIOXIDE,CO2 28.7 mmol/L (21.0-32.0); CHLORIDE,CL 101.0 mmol/L (98-107); CREATININE 0.9 mg/dL (0.6-1.0); EST CRCL DRUG DOSING (CG) 76.3 mL/min; GLUCOSE RANDOM 101.0 mg/dL (74-106); POTASSIUM,K 3.2 mmol/L (3.5-5.1); PROTEIN TOTAL,TP 7.4 g/dL (6.4-8.2); SODIUM,NA 134.0 mmol/L (136-145)
[2025-01-20 04:46] LABS: ESTIMATED GFR 89.0 mL/min (>60)
[2025-01-20] MEDS: Iopamidol 755 Mg/ML 100 ML Bottle IVPUSH ONE (05:24)
[2025-01-20] MEDS: diphenhydrAMINE 50 MG/ML SDV IVPUSH ONE (06:03)
[2025-01-20] MEDS: methylPREDNISolone Sodium Succinate 125 MG/2 ML SDV IVPUSH ONE (06:03)
[2025-01-20] MEDS: methylPREDNISolone Sodium Succinate 125 MG/2 ML SDV ONE (06:08)
[2025-01-20] MEDS: EPINEPHrine 1 MG/ML SDV IM ONE (06:25)
[2025-01-20] MEDS: EPINEPHrine 1 MG/ML SDV ONE (06:27)
== END 2025-01-20 09:48 | disposition home or self-care (01) ==
LOC: MW.ED 03:54
DX: K46.9 Unspecified abdominal hernia without obstruction or gangrene (principal); T78.40XA Allergy, unspecified, initial encounter; R11.2 Nausea with vomiting, unspecified; R19.5 Other fecal abnormalities; I10 Essential (primary) hypertension; Z98.51 Tubal ligation status; Z79.899 Other long term (current) drug therapy; Z91.041 Radiographic dye allergy status; Z88.5 Allergy status to narcotic agent
CPT/HCPCS: 36415; 74018; 74177; 80053; 81003; 81025; 83690; 85025; 96361; 96372; 96374; 96375; 96376; 99284; J0171; J1200; J1885; J2270; J2405; J2919; J7030; Q9967; 99283

== ENCOUNTER 2025-02-23 15:42 | Emergency (ER) | payer OTHER ==
[2025-02-23] MEDS: Ketorolac 30 MG/ML SDV IVPUSH ONE (16:17)
[2025-02-23 16:31] LABS: BASOPHILS ABSOLUTE AUTO 0.03 K/uL (0.00-0.20); BASOPHILS PERCENT AUTO 0.5 % (0.0-1.0); EOSINOPHILS ABSOLUTE AUTO 0.31 K/uL (0.00-0.45); EOSINOPHILS PERCENT AUTO 4.9 % (0.0-6.0); IMMATURE GRAN ABSOLUTE AUTO 0.02 K/uL (0.00-0.05); IMMATURE GRAN PERCENT AUTO 0.3 % (0.0-0.4); LYMPHOCYTES ABSOLUTE AUTO 1.23 K/uL (1.00-4.80); LYMPHOCYTES PERCENT AUTO 19.2 % (24.0-44.0); MEAN PLATELET VOLUME 9.1 fL (9.4-12.3); MONOCYTES ABSOLUTE AUTO 0.53 K/uL (0.00-0.80); MONOCYTES PERCENT AUTO 8.3 % (0.0-8.0); NEUTROPHILS ABSOLUTE AUTO 4.27 K/uL (1.80-7.70); NEUTROPHILS PERCENT AUTO 66.8 % (41.0-71.0); NRBC ABSOLUTE 0.00 K/uL (0.00-0.02); NRBC PERCENT 0.0 /100WBC (0.0-0.2); PLATELET COUNT,PLT 291 K/uL (150-400); RED BLOOD CELL COUNT 4.61 M/uL (4.10-5.30); WHITE BLOOD CELL COUNT,WBC 6.39 K/uL (3.9-11.3)
[2025-02-23 16:33] LABS: APPEARANCE,URINE CLEAR; GLUCOSE,URINE NEGATIVE (NEGATIVE); OCCULT BLOOD,URINE NEGATIVE (NEGATIVE)
[2025-02-23 16:53] LABS: A/G RATIO 1.1 (0.9-1.6); ALANINE AMINOTRANSFERASE,ALT 50 IU/L (14-63); ASPARTATE AMNIOTRANSFERASE,AST 21 IU/L (15-37); BILIRUBIN TOTAL 0.5 mg/dL (0.2-1.0); BLOOD UREA NITROGEN,BUN 8 mg/dL (7.0-18.0); CARBON DIOXIDE,CO2 25.6 mmol/L (21.0-32.0); CHLORIDE,CL 100 mmol/L (98-107); CREATININE 1.1 mg/dL (0.6-1.0); ESTIMATED GFR 69 mL/min (>60); GLUCOSE RANDOM 82 mg/dL (74-106); POTASSIUM,K 3.4 mmol/L (3.5-5.1); PROTEIN TOTAL,TP 7.6 g/dL (6.4-8.2); SODIUM,NA 138 mmol/L (136-145)
== END 2025-02-23 17:21 | disposition home or self-care (01) ==
LOC: MW.ED 15:42
DX: R10.9 Unspecified abdominal pain (principal); I10 Essential (primary) hypertension; Z88.5 Allergy status to narcotic agent; Z91.041 Radiographic dye allergy status; Z79.899 Other long term (current) drug therapy
CPT/HCPCS: 36415; 74176; 80053; 81003; 81025; 83690; 85025; 96374; 99284; J1885; 99283

== ENCOUNTER 2025-05-12 00:24 | Emergency (ER) | payer OTHER, MEDICAID | END 2025-05-12 02:15 | disposition home or self-care (01) | LOC: MW.ED 00:24 | DX: R05.1 Acute cough (principal); I10 Essential (primary) hypertension; Z88.5 Allergy status to narcotic agent; Z88.8 Allergy status to other drugs, medicaments and biological substances; Z79.899 Other long term (current) drug therapy | CPT/HCPCS: 71046; 71046-26; 99283 ==